=== PATIENT | female | born 1980 | race Caucasian/White ===

== ENCOUNTER 2020-07-04 12:10 | Emergency (ER) | payer MEDICAID, OTHER ==
[~2020-07-04] VITALS: Ht 165.1 cm; Wt 63.5 kg
[2020-07-04] MEDS ORDERED: ACETAMINOPHEN ES 500 MG TABLET PO ONE (13:00)
[2020-07-04] MEDS ORDERED: ACETAMINOPHEN ES 500 MG TABLET ONE (13:10)
--- NOTE | 2020-07-04 13:12 | NUR ---
Patient discharged to home in stable condition. Written and verbal after care instructions given. Patient verbalizes understanding of instructions. Stressed follow up or return to ER for worsening s/s.
== END 2020-07-04 13:13 | disposition home or self-care (01) ==
LOC: ER 12:10
DX: B34.9 Viral infection, unspecified (principal); R05 Cough; R50.9 Fever, unspecified; Z20.828 Contact with and (suspected) exposure to other viral communicable diseases; K50.90 Crohn's disease, unspecified, without complications
CPT/HCPCS: A4663; A9150

== ENCOUNTER 2020-07-27 10:36 | Emergency (ER) | payer OTHER ==
[~2020-07-27] VITALS: Ht 165.1 cm; Wt 63.5 kg
--- NOTE | 2020-07-27 11:31 | NUR ---
1st contact with patient in ER waiting room, for discharge@this time by Dr Omer, pending COVID-19 PCR test results. AOX4, calm & breathing easily, still with generalized bodyaches & mild cough per patient's verbalization.
--- NOTE | 2020-07-27 11:32 | NUR ---
Patient discharged to home in stable condition. Written and verbal after care instructions given to patient. Patient verbalizes understanding and compliance of instructions. Stressed follow up with primary doctor or return to ER for worsening s/s. Patient said that she wants the copy of her COVID-19 PCR test's result even if it negative. Patient is aware that the results may come back in 2-3 days & she that she may have to go to medical records for the copy. Patient verbalized understanding.
== END 2020-07-27 11:32 | disposition home or self-care (01) ==
LOC: ER 10:36
DX: B34.9 Viral infection, unspecified (principal); R05 Cough; Z20.828 Contact with and (suspected) exposure to other viral communicable diseases; K50.90 Crohn's disease, unspecified, without complications; F41.9 Anxiety disorder, unspecified; M79.10 Myalgia, unspecified site
CPT/HCPCS: 71045; 99284; U0003; A4663